=== PATIENT | female | born 1995 | race Caucasian/White ===

== ENCOUNTER 2017-11-05 17:51 | Emergency (ER) | payer MEDICAID, OTHER ==
[~2017-11-05] VITALS: Ht 160 cm; Wt 94.8 kg
[2017-11-05 17:55] VITALS: BP 123/86
== END 2017-11-05 20:48 | disposition home or self-care (01) ==
LOC: ED 20:43
DX: S92.511A Displaced fracture of proximal phalanx of right lesser toe(s), initial encounter for closed fracture (principal); W22.8XXA Striking against or struck by other objects, initial encounter; Y93.89 Activity, other specified; Y92.89 Other specified places as the place of occurrence of the external cause; Y99.8 Other external cause status
CPT/HCPCS: 29515